=== PATIENT | female | born 1975 | race Caucasian/White ===

== ENCOUNTER 2019-06-22 05:20 | Emergency (ER) | payer MEDICAID ==
[~2019-06-22] VITALS: Ht 162.6 cm; Wt 95.3 kg
[2019-06-22 05:27] VITALS: Ht 162.6 cm; Wt 95.3 kg
[2019-06-22 05:50] VITALS: BP 138/81
== END 2019-06-22 05:50 | disposition home or self-care (01) ==
LOC: ED 05:20
DX: Z76.0 Encounter for issue of repeat prescription (principal)